=== PATIENT | male | born 1940 | race Hispanic/Latino ===

== ENCOUNTER 2017-11-16 20:14 | Inpatient (IN) | payer MEDICARE ==
[~2017-11-16] VITALS: Ht 170.2 cm; Wt 68.9 kg
[2017-11-16 22:04] VITALS: BP 121/87
[2017-11-16] MEDS ORDERED: DUTA0.5C17 PO (22:25)
[2017-11-16] MEDS ORDERED: RAMI5CAP21 PO (22:25)
[2017-11-16] MEDS ORDERED: CARV3.1262 PO (22:25)
[2017-11-16] MEDS ORDERED: CLOP75TA14 PO (22:25)
[2017-11-16] MEDS ORDERED: SIMV20TA6 PO (22:25)
[2017-11-16] MEDS ORDERED: ASPI-555 PO (22:25)
[2017-11-16] MEDS ORDERED: TAMS0.4C32 PO (22:25)
[2017-11-16] MEDS ORDERED: POTASSIUM CHLORIDE 20 MEQ ERTAB PO PRN (22:45)
[2017-11-16] MEDS ORDERED: ONDANSETRON HCL 4 MG/2 ML VIAL IV PRN (22:45)
[2017-11-16] MEDS ORDERED: POTASSIUM CHLORIDE 10% ELIXIR 20 MEQ/15 ML UDCUP PO PRN (22:45)
[2017-11-16] MEDS ORDERED: HYDRALAZINE HCL 20 MG/ML VIAL IV PRN (22:45)
[2017-11-16] MEDS: INSULIN HUMULIN R 100 UNIT/ML 3ML SQ SCH (22:45)
[2017-11-16] MEDS ORDERED: DEXTROSE 50%-WATER 50 ML DISP.SYRIN IV PRN (23:00)
[2017-11-16] MEDS ORDERED: GLUCAGON 1MG KIT 1 MG ML IM PRN (23:00)
[2017-11-16 23:25] VITALS: BP 118/76
[2017-11-17] VITALS (7 sets, daily range): BP systolic 90–134; BP diastolic 60–81
[2017-11-17 04:30] LABS: HEMATOCRIT 36.9 % (42-54); MEAN CORPUSCULAR HEMOGLOBIN 31.7 pg (27.0-33.0); MEAN CORPUSCULAR HGB CONC 34.9 g/dL (32.0-36.0); PLATELET COUNT (AUTO) 211 K/uL (130-400); RED BLOOD CELL COUNT(AUTO) 4.06 MIL/uL (4.50-6.20); RED CELL DISTRIBUTION WIDTH 14.6 % (11.0-15.5); WHITE BLOOD COUNT (AUTO) 8.7 K/uL (4.8-10.8)
[2017-11-17 04:36] LABS: INR 1.09 (0.85-1.15); PROTHROMBIN TIME 11.4 SEC (9.6-11.6)
[2017-11-17 04:42] LABS: CREATININE 1.3 mg/dL (0.5-1.5); POTASSIUM 3.9 mmol/L (3.5-5.1)
[2017-11-17] MEDS: INSULIN HUMULIN R 100 UNIT/ML 3ML SQ SCH ×4 (04:45→21:00)
[2017-11-17] MEDS ORDERED: MORPHINE SULFATE 2 MG/ML 1ML SYG IV PRN (08:30)
[2017-11-17] MEDS ORDERED: ACETAMINOPHEN 325 MG TAB PO PRN ×2 (08:30)
[2017-11-17] MEDS ORDERED: LACTULOSE 20 GM/30 ML UDCUP PO PRN (08:30)
[2017-11-17] MEDS ORDERED: MAG HYDROX/AL HYDROX/SIMETH ES 30 ML SUSP UDCUP PO PRN (08:30)
[2017-11-17] MEDS ORDERED: GUAIFENESIN-DM 200/20 MG 10 ML PO PRN (08:30)
[2017-11-17] MEDS ORDERED: HYDRALAZINE HCL 20 MG/ML VIAL IV PRN (08:30)
[2017-11-17] MEDS ORDERED: SODIUM CHLORIDE 0.9% 1000ML 1,000 ML IV SCH ×2 (08:30→18:45)
[2017-11-17] MEDS ORDERED: NITROGLYCERIN 0.4 MG SL TAB SL PRN (08:30)
[2017-11-17] MEDS: TAMSULOSIN HCL 0.4 MG CAP.ER.24H PO SCH (09:00)
[2017-11-17] MEDS: PANTOPRAZOLE SODIUM 40 MG TABLET.DR PO SCH (09:00)
[2017-11-17] MEDS ORDERED: ONDANSETRON HCL MDV 20ML 2 MG/ML VIAL IVP PRN (10:30)
[2017-11-17] MEDS: SODIUM CHLORIDE 0.9% 1000ML 1,000 ML IV SCH (10:46)
[2017-11-17] MEDS ORDERED: HEPARIN SODIUM 1000UNIT/ML 10ML VIAL ONE ×2 (13:18→15:53)
[2017-11-17] MEDS ORDERED: ISOVUE-300 100 ML VIAL IV ONE (13:18)
[2017-11-17] MEDS ORDERED: LIDOCAINE HCL-MPF 1% 2ML VIAL ONE (14:47)
[2017-11-17] MEDS ORDERED: CEFAZOLIN SODIUM 1 GM VIAL ONE (14:47)
[2017-11-17] MEDS ORDERED: FENTANYL CITRATE PF 50 MCG/1 ML 2ML VIAL ONE (14:58)
[2017-11-17] MEDS ORDERED: NOREPINEPHRINE BITARTRATE 1 MG/1 ML ML IV ONE (15:23)
[2017-11-17] MEDS ORDERED: THROMBIN-JMI 20000 UNIT KIT TP ONE (17:50)
[2017-11-17] MEDS ORDERED: BACITRACIN 50,000 UNIT VIAL ONE (17:50)
[2017-11-17] MEDS ORDERED: SODIUM BICARB 50MEQ 50ML VIAL ONE (18:59)
[2017-11-17] MEDS ORDERED: FUROSEMIDE 10 MG/ML 4ML VIAL ONE (19:04)
[2017-11-17] MEDS ORDERED: GLYCOPYRROLATE 0.2 MG/ML 5 ML VIAL ONE (19:10)
[2017-11-17] MEDS ORDERED: NEOSTIGMINE 5MG/5ML SYR IV ONE (19:10)
[2017-11-17] MEDS: CEFAZOLIN SODIUM 1 GM VIAL IVP SCH (21:26)
[2017-11-17] MEDS: NITROGLYCERIN 1GM/1 INCH PACKET TD SCH (21:28)
[2017-11-18] VITALS (23 sets, daily range): BP systolic 106–145; BP diastolic 46–89
[2017-11-18] MEDS: NITROGLYCERIN 1GM/1 INCH PACKET TD SCH ×4 (02:16→20:26)
[2017-11-18] MEDS: CEFAZOLIN SODIUM 1 GM VIAL IVP SCH (04:15)
[2017-11-18 04:16] LABS: HEMATOCRIT 37.9 % (42-54); MEAN CORPUSCULAR HEMOGLOBIN 31.2 pg (27.0-33.0); MEAN CORPUSCULAR HGB CONC 34.3 g/dL (32.0-36.0); MEAN CORPUSCULAR VOLUME 90.8 fL (79-99); PLATELET COUNT (AUTO) 203 K/uL (130-400); RED BLOOD CELL COUNT(AUTO) 4.17 MIL/uL (4.50-6.20); RED CELL DISTRIBUTION WIDTH 15.3 % (11.0-15.5); WHITE BLOOD COUNT (AUTO) 13.1 K/uL (4.8-10.8)
[2017-11-18 06:12] LABS: ALBUMIN 2.5 g/dL (3.5-5.0); BILIRUBIN,TOTAL 0.8 mg/dL (0.2-1.0); CREATININE 1.2 mg/dL (0.5-1.5); POTASSIUM 4.7 mmol/L (3.5-5.1); TOTAL PROTEIN, SERUM 6.5 g/dL (6.0-8.3)
[2017-11-18] MEDS: SODIUM CHLORIDE 0.9% 1000ML 1,000 ML IV SCH (06:27)
[2017-11-18] MEDS: INSULIN HUMULIN R 100 UNIT/ML 3ML SQ SCH ×4 (06:37→21:09)
[2017-11-18] MEDS: TAMSULOSIN HCL 0.4 MG CAP.ER.24H PO SCH (08:33)
[2017-11-18] MEDS: **HM** DUTASTERIDE 0.5MG PO SCH (09:00)
[2017-11-18] MEDS: PANTOPRAZOLE SODIUM 40 MG TABLET.DR PO SCH (10:26)
[2017-11-18] MEDS: ACETAMINOPHEN-CODEINE 300/30MG TAB PO PRN (20:29)
[2017-11-19] VITALS (17 sets, daily range): BP systolic 96–133; BP diastolic 51–87
[2017-11-19] MEDS: SODIUM CHLORIDE 0.9% 1000ML 1,000 ML IV SCH (00:10)
[2017-11-19] MEDS: NITROGLYCERIN 1GM/1 INCH PACKET TD SCH ×4 (02:52→20:34)
[2017-11-19] MEDS: ACETAMINOPHEN-CODEINE 300/30MG TAB PO PRN (03:07)
[2017-11-19 03:54] LABS: HEMATOCRIT 31.8 % (42-54); MEAN CORPUSCULAR HEMOGLOBIN 30.6 pg (27.0-33.0); MEAN CORPUSCULAR HGB CONC 34.1 g/dL (32.0-36.0); MEAN CORPUSCULAR VOLUME 89.7 fL (79-99); PLATELET COUNT (AUTO) 146 K/uL (130-400); RED BLOOD CELL COUNT(AUTO) 3.54 MIL/uL (4.50-6.20); RED CELL DISTRIBUTION WIDTH 15.2 % (11.0-15.5); WHITE BLOOD COUNT (AUTO) 13.2 K/uL (4.8-10.8)
[2017-11-19 04:10] LABS: CREATININE 1.1 mg/dL (0.5-1.5); POTASSIUM 3.4 mmol/L (3.5-5.1)
[2017-11-19] MEDS: INSULIN HUMULIN R 100 UNIT/ML 3ML SQ SCH ×4 (06:14→20:36)
[2017-11-19] MEDS: TAMSULOSIN HCL 0.4 MG CAP.ER.24H PO SCH (09:00)
[2017-11-19] MEDS: **HM** DUTASTERIDE 0.5MG PO SCH (09:00)
[2017-11-19] MEDS: PANTOPRAZOLE SODIUM 40 MG TABLET.DR PO SCH (09:00)
[2017-11-19] MEDS ORDERED: IOPAMIDOL-370 75 ML VIAL IV ONE (10:15)
[2017-11-19] MEDS ORDERED: ISOVUE-370 50ML VIAL IV ONE (10:15)
[2017-11-19] MEDS: POTASSIUM CHLORIDE 20MEQ/100ML 100 ML IV PRN (15:54)
[2017-11-19] MEDS: LIDOCAINE HCL-MPF 1% 2ML VIAL IVP PRN (15:54)
[2017-11-20] VITALS (25 sets, daily range): BP systolic 86–149; BP diastolic 52–73
[2017-11-20] MEDS: NITROGLYCERIN 1GM/1 INCH PACKET TD SCH ×4 (04:10→22:29)
[2017-11-20] MEDS: SODIUM CHLORIDE 0.9% 1000ML 1,000 ML IV SCH ×3 (04:10→19:15)
[2017-11-20 04:21] LABS: HEMATOCRIT 29.3 % (42-54); MEAN CORPUSCULAR HEMOGLOBIN 32.4 pg (27.0-33.0); MEAN CORPUSCULAR HGB CONC 36.1 g/dL (32.0-36.0); MEAN CORPUSCULAR VOLUME 89.9 fL (79-99); PLATELET COUNT (AUTO) 152 K/uL (130-400); RED BLOOD CELL COUNT(AUTO) 3.26 MIL/uL (4.50-6.20); RED CELL DISTRIBUTION WIDTH 14.9 % (11.0-15.5); WHITE BLOOD COUNT (AUTO) 11.4 K/uL (4.8-10.8)
[2017-11-20 04:30] LABS: POTASSIUM 3.9 mmol/L (3.5-5.1)
[2017-11-20] MEDS: INSULIN HUMULIN R 100 UNIT/ML 3ML SQ SCH ×4 (06:35→21:00)
[2017-11-20] MEDS: ATORVASTATIN CALCIUM 20 MG TABLET PO SCH (09:00)
[2017-11-20] MEDS: PANTOPRAZOLE SODIUM 40 MG TABLET.DR PO SCH (09:00)
[2017-11-20] MEDS: ASPIRIN 81MG TAB.CHEW PO SCH (09:00)
[2017-11-20] MEDS: CARVEDILOL 3.125 MG TABLET PO SCH ×2 (09:00→21:00)
[2017-11-20] MEDS: TAMSULOSIN HCL 0.4 MG CAP.ER.24H PO SCH (09:00)
[2017-11-20] MEDS: **HM** DUTASTERIDE 0.5MG PO SCH (09:00)
[2017-11-20] MEDS ORDERED: LIDOCAINE PF 2% 5ML ABBOJECT ONE (11:29)
[2017-11-20] MEDS ORDERED: PROPOFOL 10 MG/ML 20ML VIAL IV ONE ×2 (11:29→15:04)
[2017-11-20] MEDS ORDERED: MIDAZOLAM HCL 1 MG/ML 2ML VIAL ONE (11:29)
[2017-11-20] MEDS ORDERED: FENTANYL CITRATE PF 50 MCG/1 ML 2ML VIAL ONE (11:29)
[2017-11-20] MEDS ORDERED: DEXAMETHASONE SOD PHOSPHATE 10MG/ML 1ML VIAL ONE (11:29)
[2017-11-20] MEDS ORDERED: GLYCOPYRROLATE 0.2 MG/ML 5 ML VIAL ONE (11:29)
[2017-11-20] MEDS ORDERED: CEFAZOLIN SODIUM 1 GM VIAL IVP ONE ×2 (11:35→15:30)
[2017-11-20] MEDS ORDERED: THROMBIN-JMI 5000 UNIT/VIAL TP ONE (12:34)
[2017-11-20] MEDS ORDERED: BACITRACIN 50,000 UNIT VIAL IRRIG ONE (13:00)
[2017-11-20] MEDS ORDERED: HEPARIN SODIUM 1000UNIT/ML 10ML VIAL ONE ×2 (13:44→18:20)
[2017-11-20] MEDS ORDERED: CEFAZOLIN SODIUM 1 GM VIAL ONE (18:20)
[2017-11-20] MEDS ORDERED: PROTAMINE SULFATE 10 MG/ML 5 ML VIAL ONE (18:21)
[2017-11-20] MEDS ORDERED: NICARDIPINE HCL 100 MG in SODIUM CHLORIDE 0.9% 60 ML IV PRN (19:15)
[2017-11-20 19:35] LABS: HEMATOCRIT 28.9 % (42-54); MEAN CORPUSCULAR HEMOGLOBIN 32.6 pg (27.0-33.0); MEAN CORPUSCULAR HGB CONC 35.7 g/dL (32.0-36.0); MEAN CORPUSCULAR VOLUME 91.2 fL (79-99); PLATELET COUNT (AUTO) 138 K/uL (130-400); RED BLOOD CELL COUNT(AUTO) 3.17 MIL/uL (4.50-6.20); RED CELL DISTRIBUTION WIDTH 14.8 % (11.0-15.5); WHITE BLOOD COUNT (AUTO) 12.9 K/uL (4.8-10.8)
[2017-11-20 19:43] LABS: CREATININE 1.2 mg/dL (0.5-1.5); POTASSIUM 4.3 mmol/L (3.5-5.1)
[2017-11-20] MEDS ORDERED: ALBUMIN (HUMAN) 5% 250 ML IV ONE (20:17)
[2017-11-20 20:52] LABS: ABG BASE EXCESS -6.1 mmol/L (-2.0-3.0); ABG HCO3 17.5 mmol/L (21.0-28.0); ABG OXYGEN SATURATION 99.4 % (95.0-99.0); ABG PCO2 30 mmHg (35-48)
[2017-11-20] MEDS ORDERED: NICARDIPINE IN NACL, ISO-OSM 200 ML IV ONE (20:58)
[2017-11-20 23:29] LABS: ABG BASE EXCESS -1.3 mmol/L (-2.0-3.0); ABG HCO3 21.3 mmol/L (21.0-28.0); ABG OXYGEN SATURATION 99.4 % (95.0-99.0); ABG PCO2 30 mmHg (35-48)
[2017-11-21] VITALS (28 sets, daily range): BP systolic 79–124; BP diastolic 41–61
[2017-11-21] MEDS: CEFAZOLIN SODIUM 1 GM VIAL IV SCH ×4 (00:02→23:47)
[2017-11-21 00:39] LABS: ABG BASE EXCESS -2.7 mmol/L (-2.0-3.0); ABG HCO3 20.8 mmol/L (21.0-28.0); ABG OXYGEN SATURATION 99.4 % (95.0-99.0); ABG PCO2 33 mmHg (35-48)
[2017-11-21] MEDS: NITROGLYCERIN 1GM/1 INCH PACKET TD SCH ×4 (01:55→20:12)
[2017-11-21 04:52] LABS: HEMATOCRIT 26.5 % (42-54); MEAN CORPUSCULAR HEMOGLOBIN 31.3 pg (27.0-33.0); MEAN CORPUSCULAR HGB CONC 34.5 g/dL (32.0-36.0); MEAN CORPUSCULAR VOLUME 90.8 fL (79-99); PLATELET COUNT (AUTO) 147 K/uL (130-400); RED BLOOD CELL COUNT(AUTO) 2.92 MIL/uL (4.50-6.20); RED CELL DISTRIBUTION WIDTH 14.5 % (11.0-15.5); WHITE BLOOD COUNT (AUTO) 10.4 K/uL (4.8-10.8)
[2017-11-21] MEDS: SODIUM CHLORIDE 0.9% 1000ML 1,000 ML IV SCH ×3 (04:56→20:14)
[2017-11-21 05:03] LABS: CREATININE 1.1 mg/dL (0.5-1.5); POTASSIUM 4.1 mmol/L (3.5-5.1)
[2017-11-21] MEDS: INSULIN HUMULIN R 100 UNIT/ML 3ML SQ SCH ×4 (06:33→20:13)
[2017-11-21] MEDS: ENOXAPARIN SODIUM 40 MG/0.4 ML SYRINGE SQ SCH (08:51)
[2017-11-21] MEDS: TAMSULOSIN HCL 0.4 MG CAP.ER.24H PO SCH (08:52)
[2017-11-21] MEDS: ATORVASTATIN CALCIUM 20 MG TABLET PO SCH (08:52)
[2017-11-21] MEDS: ASPIRIN 81MG TAB.CHEW PO SCH (08:52)
[2017-11-21] MEDS: PANTOPRAZOLE SODIUM 40 MG TABLET.DR PO SCH (08:52)
[2017-11-21] MEDS: CARVEDILOL 3.125 MG TABLET PO SCH ×2 (08:52→20:13)
[2017-11-21] MEDS: **HM** DUTASTERIDE 0.5MG PO SCH (08:53)
[2017-11-21] MEDS ORDERED: EXEN2PEN SQ (10:18)
[2017-11-22] VITALS (15 sets, daily range): BP systolic 81–114; BP diastolic 37–57
[2017-11-22] MEDS: ACETAMINOPHEN-CODEINE 300/30MG TAB PO PRN (02:18)
[2017-11-22] MEDS: NITROGLYCERIN 1GM/1 INCH PACKET TD SCH ×4 (02:19→20:48)
[2017-11-22 03:58] LABS: BASOPHILS % (AUTO) 0.3 % (0.0-5.0); EOSINOPHILS % (AUTO) 1.1 % (0.0-8.0); HEMATOCRIT 23.1 % (42-54); LYMPHOCYTES % (AUTO) 11.6 % (21.0-51.0); MEAN CORPUSCULAR HEMOGLOBIN 32.3 pg (27.0-33.0); MEAN CORPUSCULAR HGB CONC 35.5 g/dL (32.0-36.0); MONOCYTES % (AUTO) 9.2 % (3.0-13.0); NEUTROPHILS % (AUTO) 77.8 % (40.0-77.0); PLATELET COUNT (AUTO) 169 K/uL (130-400); RED BLOOD CELL COUNT(AUTO) 2.54 MIL/uL (4.50-6.20); RED CELL DISTRIBUTION WIDTH 14.6 % (11.0-15.5); WHITE BLOOD COUNT (AUTO) 8.8 K/uL (4.8-10.8)
[2017-11-22 04:09] LABS: CREATININE 1.2 mg/dL (0.5-1.5); POTASSIUM 3.2 mmol/L (3.5-5.1)
[2017-11-22] MEDS: POTASSIUM CHLORIDE 20MEQ/100ML 100 ML IV PRN ×2 (05:20→09:48)
[2017-11-22] MEDS: LIDOCAINE HCL-MPF 1% 2ML VIAL IVP PRN ×2 (05:22→09:49)
[2017-11-22] MEDS: INSULIN HUMULIN R 100 UNIT/ML 3ML SQ SCH ×4 (05:23→20:56)
[2017-11-22] MEDS ORDERED: INSULIN GLARGINE 100 UNITS/ML 10 ML VIAL SQ ONE (08:00)
[2017-11-22 08:22] LABS: HEMATOCRIT 24.5 % (42-54)
[2017-11-22] MEDS: CEFAZOLIN SODIUM 1 GM VIAL IV SCH ×3 (08:35→23:51)
[2017-11-22] MEDS: ASPIRIN 81MG TAB.CHEW PO SCH (08:36)
[2017-11-22] MEDS: ATORVASTATIN CALCIUM 20 MG TABLET PO SCH (08:36)
[2017-11-22] MEDS: TAMSULOSIN HCL 0.4 MG CAP.ER.24H PO SCH (08:36)
[2017-11-22] MEDS: PANTOPRAZOLE SODIUM 40 MG TABLET.DR PO SCH (08:36)
[2017-11-22] MEDS: ENOXAPARIN SODIUM 40 MG/0.4 ML SYRINGE SQ SCH (08:36)
[2017-11-22] MEDS: **HM** DUTASTERIDE 0.5MG PO SCH (08:50)
[2017-11-22 08:58] LABS: % IRON SATURATION 8.3 % (30-44); FERRITIN 295 ng/mL (30-400); IRON, SERUM 12 mcg/dL (65-175); TOTAL IRON BINDING CAPACITY 143 mcg/dL (250-450)
[2017-11-22] MEDS: CLOPIDOGREL BISULFATE 75 MG TAB PO SCH (12:20)
[2017-11-23] VITALS (7 sets, daily range): BP systolic 119–142; BP diastolic 58–70
[2017-11-23] MEDS: NITROGLYCERIN 1GM/1 INCH PACKET TD SCH ×2 (02:48→08:07)
[2017-11-23 03:55] LABS: HEMATOCRIT 23.2 % (42-54); MEAN CORPUSCULAR HEMOGLOBIN 30.9 pg (27.0-33.0); MEAN CORPUSCULAR HGB CONC 34.2 g/dL (32.0-36.0); MEAN CORPUSCULAR VOLUME 90.3 fL (79-99); PLATELET COUNT (AUTO) 214 K/uL (130-400); RED BLOOD CELL COUNT(AUTO) 2.57 MIL/uL (4.50-6.20); RED CELL DISTRIBUTION WIDTH 14.3 % (11.0-15.5)
[2017-11-23 04:09] LABS: CREATININE 1.1 mg/dL (0.5-1.5); POTASSIUM 3.5 mmol/L (3.5-5.1)
[2017-11-23] MEDS: INSULIN HUMULIN R 100 UNIT/ML 3ML SQ SCH ×4 (06:00→20:54)
[2017-11-23] MEDS: PANTOPRAZOLE SODIUM 40 MG TABLET.DR PO SCH (08:06)
[2017-11-23] MEDS: ATORVASTATIN CALCIUM 20 MG TABLET PO SCH (08:06)
[2017-11-23] MEDS: TAMSULOSIN HCL 0.4 MG CAP.ER.24H PO SCH (08:06)
[2017-11-23] MEDS: ASPIRIN 81MG TAB.CHEW PO SCH (08:06)
[2017-11-23] MEDS: INSULIN GLARGINE 100 UNITS/ML 10 ML VIAL SQ SCH (08:06)
[2017-11-23] MEDS: CLOPIDOGREL BISULFATE 75 MG TAB PO SCH (08:06)
[2017-11-23] MEDS: CEFAZOLIN SODIUM 1 GM VIAL IV SCH ×3 (08:07→23:35)
[2017-11-23] MEDS: **HM** DUTASTERIDE 0.5MG PO SCH (08:12)
[2017-11-23] MEDS: ENOXAPARIN SODIUM 40 MG/0.4 ML SYRINGE SQ SCH (08:58)
[2017-11-23] MEDS ORDERED: COMPOUND IV MISC 1 EACH IVSOLN MISC PRN (09:15)
[2017-11-23] MEDS: IRON SUCROSE COMPLEX 100 MG in SODIUM CHLORIDE 0.9% 50 ML IV SCH (10:01)
[2017-11-23] MEDS: ACETAMINOPHEN-CODEINE 300/30MG TAB PO PRN (20:54)
[2017-11-24 03:52] VITALS: BP 143/66
[2017-11-24 05:16] LABS: HEMATOCRIT 25.5 % (42-54); MEAN CORPUSCULAR HEMOGLOBIN 32.5 pg (27.0-33.0); MEAN CORPUSCULAR VOLUME 90.1 fL (79-99); NUCLEATED RED BLOOD CELLS 0.1 % (0.0-0.19); PLATELET COUNT (AUTO) 310 K/uL (130-400); RED BLOOD CELL COUNT(AUTO) 2.83 MIL/uL (4.50-6.20); RED CELL DISTRIBUTION WIDTH 14.1 % (11.0-15.5); WHITE BLOOD COUNT (AUTO) 10.6 K/uL (4.8-10.8)
[2017-11-24 05:20] LABS: CREATININE 1.5 mg/dL (0.5-1.5); POTASSIUM 3.5 mmol/L (3.5-5.1)
[2017-11-24] MEDS: INSULIN HUMULIN R 100 UNIT/ML 3ML SQ SCH ×3 (06:35→16:30)
[2017-11-24 07:43] VITALS: BP 137/63
[2017-11-24] MEDS: ATORVASTATIN CALCIUM 20 MG TABLET PO SCH (10:23)
[2017-11-24] MEDS: ENOXAPARIN SODIUM 40 MG/0.4 ML SYRINGE SQ SCH (10:23)
[2017-11-24] MEDS: CEFAZOLIN SODIUM 1 GM VIAL IV SCH ×2 (10:23→16:00)
[2017-11-24] MEDS: TAMSULOSIN HCL 0.4 MG CAP.ER.24H PO SCH (10:25)
[2017-11-24] MEDS: PANTOPRAZOLE SODIUM 40 MG TABLET.DR PO SCH (10:25)
[2017-11-24] MEDS: CLOPIDOGREL BISULFATE 75 MG TAB PO SCH (10:25)
[2017-11-24] MEDS: ASPIRIN 81MG TAB.CHEW PO SCH (10:25)
[2017-11-24] MEDS: INSULIN GLARGINE 100 UNITS/ML 10 ML VIAL SQ SCH (10:28)
[2017-11-24 11:20] VITALS: BP 142/61
[2017-11-24] MEDS: **HM** DUTASTERIDE 0.5MG PO SCH (11:52)
[2017-11-24] MEDS: IRON SUCROSE COMPLEX 100 MG in SODIUM CHLORIDE 0.9% 50 ML IV SCH (11:52)
== END 2017-11-24 19:45 | DRG 269 ==
LOC: 2DH 21:32 → 2CV 11-17 15:57 → 2BH 11-18 09:56 → 2AH 11-22 22:36
PROVIDERS: ADMIT Internal Medicine; ATTEND Internal Medicine
PROC: B4101ZZ Fluoroscopy of Abdominal Aorta using Low Osmolar Contrast (ICD-10-PCS; 2017-11-17 18:00)
PROC: 04QK4ZZ Repair Right Femoral Artery, Percutaneous Endoscopic Approach (ICD-10-PCS; 2017-11-20)
PROC: 04CH3ZZ Extirpation of Matter from Right External Iliac Artery, Percutaneous Approach (ICD-10-PCS; 2017-11-20)
PROC: 04CJ3ZZ Extirpation of Matter from Left External Iliac Artery, Percutaneous Approach (ICD-10-PCS; 2017-11-20)
PROC: 041L4JL Bypass Left Femoral Artery to Popliteal Artery with Synthetic Substitute, Percutaneous Endoscopic Approach (ICD-10-PCS; 2017-11-20)
PROC: 04U Lower Arteries, Supplement (ICD-10-PCS; 2017-11-20)
PROC: 04U Lower Arteries, Supplement (ICD-10-PCS; 2017-11-20)
PROC: 30233N1 Transfusion of Nonautologous Red Blood Cells into Peripheral Vein, Percutaneous Approach (ICD-10-PCS; 2017-11-20)
PROC: 04V03DZ Restriction of Abdominal Aorta with Intraluminal Device, Percutaneous Approach (ICD-10-PCS; principal; 2017-11-20 11:27)
DX: I71.4 Abdominal aortic aneurysm, without rupture (principal); E46 Unspecified protein-calorie malnutrition; K63.3 Ulcer of intestine; E11.22 Type 2 diabetes mellitus with diabetic chronic kidney disease; N18.3 Chronic kidney disease, stage 3 (moderate); I42.9 Cardiomyopathy, unspecified; K62.5 Hemorrhage of anus and rectum; E11.51 Type 2 diabetes mellitus with diabetic peripheral angiopathy without gangrene; E78.5 Hyperlipidemia, unspecified; I12.9 Hypertensive chronic kidney disease with stage 1 through stage 4 chronic kidney disease, or unspecified chronic kidney disease; Z68.23 Body mass index [BMI] 23.0-23.9, adult; D64.9 Anemia, unspecified; I25.10 Atherosclerotic heart disease of native coronary artery without angina pectoris; I25.2 Old myocardial infarction; I25.5 Ischemic cardiomyopathy; I70.209 Unspecified atherosclerosis of native arteries of extremities, unspecified extremity; I99.8 Other disorder of circulatory system; N40.0 Benign prostatic hyperplasia without lower urinary tract symptoms; Z79.899 Other long term (current) drug therapy; Z95.810 Presence of automatic (implantable) cardiac defibrillator; Z87.891 Personal history of nicotine dependence; Z86.73 Personal history of transient ischemic attack (TIA), and cerebral infarction without residual deficits; Z82.49 Family history of ischemic heart disease and other diseases of the circulatory system
CPT/HCPCS: 34705; 34712; 34713; 34812; 36415; 71045; 75635; 80048; 80053; 82607; 82728; 82746; 82803; 82948; 84132; 85014; 85018; 85025; 85027; 85347; 85610; 86850; 86900; 86901; 86922; 93005; 93925; 94150; 97039; A4218; A4344; C1725; C1757; C1760; C1768; C1769; C1887; C1894; C9113; J0690; J1100; J1644; J1650; J1756; J1815; J1940; J2001; J2250; J2704; J2710; J2720; J3010; J3480; J3490; J7030; J7040; P9016; P9045; Q0161; Q9967